=== PATIENT | female | born 1950 | race African-American/Black ===

== ENCOUNTER → 2018-06-07 | Outpatient (CLI) | payer MEDICARE, MEDICAID | END | disposition home or self-care (01) | LOC: CT 08:38 | PROVIDERS: ATTEND Internal Medicine Geriatric Medicine | DX: M47.812 Spondylosis without myelopathy or radiculopathy, cervical region (principal); N63.31 Unspecified lump in axillary tail of the right breast; N28.1 Cyst of kidney, acquired; I51.7 Cardiomegaly; R90.82 White matter disease, unspecified; G31.9 Degenerative disease of nervous system, unspecified | CPT/HCPCS: 70490; 71250 ==

== ENCOUNTER 2020-01-07 14:20 | Inpatient (IN) | payer MEDICARE, MEDICAID ==
[~2020-01-07] VITALS: Ht 167.6 cm; Wt 88.0 kg
[2020-01-07 15:14] LABS: CHLORIDE 105 mEq/L (98-107)
[2020-01-07 15:16] LABS: BASOPHILS % 0.8 % (0.0-2.0); EOSINOPHILS % 1.3 % (0.0-5.0); HEMATOCRIT. 36.3 % (36.0-48.0); HEMOGLOBIN. 11.9 g/dL (12.0-16.0); LYMPHOCYTES % 28.1 % (20.0-50.0); MEAN CORPUSCULAR HEMOGLOBIN 27.5 pg (28.0-32.0); MEAN CORPUSCULAR VOLUME 83.7 fL (81.0-99.0); MEAN PLATELET VOLUME 8.9 fl (7.4-10.4); MONOCYTES % 13.6 % (2.0-8.0); NEUTROPHILS % 56.2 % (40.0-76.0); PLATELET 198 x1000/uL (130-400); RED BLOOD CELL COUNT 4.34 mill/uL (4.2-5.4); RED CELL DISTRIBUTION WIDTH 16.2 % (11.6-14.6)
[2020-01-07] MEDS ORDERED: FUROSEMIDE 20MG/2ML VIAL IVP ONE (16:30)
[2020-01-07 19:08] LABS: CLARITY URINE CLEAR (CLEAR); COLOR URINE YELLOW (YELLOW); KETONES URINE NEGATIVE (NEGATIVE); LEUKOCYTE ESTERASE URINE NEGATIVE (NEGATIVE); NITRITE URINE NEGATIVE (NEGATIVE); OCCULT BLOOD URINE NEGATIVE (NEGATIVE); PH URINE 6.5 (4.5-8.0); PROTEIN URINE NEGATIVE (NEGATIVE); SPECIFIC GRAVITY URINE 1.012 (1.005-1.030); UROBILINOGEN URINE 0.2 E.U./dL (0.2-1.0)
[2020-01-08] MEDS ORDERED: GUAIFENESIN 200MG/10ML SUGAR FREE UDC PO PRN (09:30)
[2020-01-08 09:45] VITALS: BP 172/92
[2020-01-08] MEDS ORDERED: HYDROCODONE/ACETAMINOPHEN 5/325MG TABLET PO NR (09:45)
[2020-01-08] MEDS ORDERED: DOCUSATE SODIUM 250MG CAPSULE PO NR (10:00)
[2020-01-08] MEDS ORDERED: AMLODIPINE 5MG TABLET PO NR (10:30)
[2020-01-08] MEDS ORDERED: POTASSIUM CHLORIDE 20MEQ TABLET SR PO NR (10:30)
[2020-01-08] MEDS ORDERED: ASPIRIN 81MG EC TABLET PO NR (10:30)
[2020-01-08] MEDS ORDERED: CALCIUM CARBONATE 1250MG TABLET (500MG ELEMENTAL CALCIUM) PO NR (10:30)
[2020-01-08] MEDS ORDERED: ERGOCALCIFEROL 50000UNITS CAPSULE PO NR (11:00)
[2020-01-08] MEDS: ENOXAPARIN 40MG/0.4ML SYR SUBCUT SCH (12:05)
[2020-01-08 12:30] VITALS: BP 160/88
[2020-01-08 16:00] VITALS: BP 131/69
[2020-01-08 16:05] VITALS: BP 131/69
[2020-01-08] MEDS: GABAPENTIN 100MG CAPSULE PO SCH (18:29)
[2020-01-08] MEDS: MONTELUKAST SODIUM 10MG TABLET PO SCH (18:29)
[2020-01-08] MEDS: FLUTICASONE/VILANTEROL 200-25 BLST.W.DEV ORI SCH (18:29)
[2020-01-08 20:00] VITALS: BP 137/72
[2020-01-08] MEDS ORDERED: ZOLPIDEM TARTRATE 5MG TABLET PO PRN (21:00)
[2020-01-09] VITALS: BP 128/82
[2020-01-09 04:00] VITALS: BP 132/69
[2020-01-09] MEDS: GABAPENTIN 100MG CAPSULE PO SCH ×2 (06:32→17:08)
[2020-01-09 08:06] VITALS: BP 125/71
[2020-01-09] MEDS: ENALAPRIL 5MG TABLET PO SCH (08:33)
[2020-01-09] MEDS: HYDROCODONE/ACETAMINOPHEN 5/325MG TABLET PO PRN ×3 (08:34→21:00)
[2020-01-09] MEDS: DOCUSATE SODIUM 250MG CAPSULE PO SCH (08:34)
[2020-01-09] MEDS: AMLODIPINE 5MG TABLET PO SCH (08:35)
[2020-01-09] MEDS: FLUTICASONE/VILANTEROL 200-25 BLST.W.DEV ORI SCH (08:35)
[2020-01-09] MEDS: ENOXAPARIN 40MG/0.4ML SYR SUBCUT SCH (08:35)
[2020-01-09] MEDS: CALCIUM CARBONATE 1250MG TABLET (500MG ELEMENTAL CALCIUM) PO SCH (08:35)
[2020-01-09] MEDS: FUROSEMIDE 40MG/4ML VIAL IVP SCH (08:36)
[2020-01-09 08:38] LABS: BASOPHILS % 0.9 % (0.0-2.0); EOSINOPHILS % 2.4 % (0.0-5.0); HEMATOCRIT. 35.6 % (36.0-48.0); HEMOGLOBIN. 11.8 g/dL (12.0-16.0); MEAN CORPUSCULAR HEMOGLOBIN 27.5 pg (28.0-32.0); MEAN CORPUSCULAR VOLUME 82.7 fL (81.0-99.0); MEAN PLATELET VOLUME 9.5 fl (7.4-10.4); MONOCYTES % 12.4 % (2.0-8.0); NEUTROPHILS % 59.3 % (40.0-76.0); PLATELET 195 x1000/uL (130-400); RED BLOOD CELL COUNT 4.31 mill/uL (4.2-5.4); RED CELL DISTRIBUTION WIDTH 15.2 % (11.6-14.6)
[2020-01-09 08:50] LABS: CHLORIDE 104 mEq/L (98-107)
[2020-01-09] MEDS ORDERED: POTASSIUM CHLORIDE 20MEQ TABLET SR PO SCH (09:00)
[2020-01-09] MEDS ORDERED: METOLAZONE 2.5MG TABLET PO SCH (09:00)
[2020-01-09] MEDS: METOLAZONE 5MG TABLET PO SCH (10:22)
[2020-01-09 12:01] VITALS: BP 114/73
[2020-01-09 16:12] VITALS: BP 139/72
[2020-01-09] MEDS ORDERED: POTASSIUM CHLORIDE 20MEQ TABLET SR PO NR (17:00)
[2020-01-09] MEDS: MONTELUKAST SODIUM 10MG TABLET PO SCH (17:05)
[2020-01-09 17:11] LABS: A/G RATIO 0.6 (0.7-1.7); ALBUMIN 3.1 g/dL (2.9-4.4); ALPHA-1-GLOBULIN 0.3 g/dL (0.0-0.4); ALPHA-2-GLOBULIN 0.8 g/dL (0.4-1.0); BETA GLOBULIN 1.2 g/dL (0.7-1.3); GAMMA GLOBULINS 2.6 g/dL (0.4-1.8); GLOBULIN TOTAL 4.9 g/dL (2.2-3.9); M-SPIKE Not Observed g/dL (Not Observed)
[2020-01-09 22:02] VITALS: BP 110/46
[2020-01-10 03:33] VITALS: BP 120/56
[2020-01-10 04:30] VITALS: BP 128/83
[2020-01-10] MEDS: ACETAMINOPHEN 325MG TABLET PO PRN ×2 (05:32→11:33)
[2020-01-10] MEDS: GABAPENTIN 100MG CAPSULE PO SCH (05:32)
[2020-01-10 07:04] LABS: CHLORIDE 101 mEq/L (98-107)
[2020-01-10 07:06] LABS: BASOPHILS % 0.6 % (0.0-2.0); EOSINOPHILS % 0.7 % (0.0-5.0); HEMATOCRIT. 36.3 % (36.0-48.0); HEMOGLOBIN. 12.1 g/dL (12.0-16.0); LYMPHOCYTES % 24.6 % (20.0-50.0); MEAN CORPUSCULAR HEMOGLOBIN 27.4 pg (28.0-32.0); MEAN CORPUSCULAR VOLUME 82.6 fL (81.0-99.0); MEAN PLATELET VOLUME 10.1 fl (7.4-10.4); MONOCYTES % 11.9 % (2.0-8.0); NEUTROPHILS % 62.2 % (40.0-76.0); PLATELET 213 x1000/uL (130-400); RED CELL DISTRIBUTION WIDTH 15.3 % (11.6-14.6)
[2020-01-10 08:00] VITALS: BP 151/82
[2020-01-10] MEDS: FLUTICASONE/VILANTEROL 200-25 BLST.W.DEV ORI SCH (08:46)
[2020-01-10] MEDS: METOLAZONE 5MG TABLET PO SCH (08:46)
[2020-01-10] MEDS: ENOXAPARIN 40MG/0.4ML SYR SUBCUT SCH (08:46)
[2020-01-10] MEDS: ENALAPRIL 5MG TABLET PO SCH (08:47)
[2020-01-10] MEDS: DOCUSATE SODIUM 250MG CAPSULE PO SCH (08:48)
[2020-01-10] MEDS: AMLODIPINE 5MG TABLET PO SCH (08:48)
[2020-01-10] MEDS: FUROSEMIDE 40MG/4ML VIAL IVP SCH (08:48)
[2020-01-10] MEDS: CALCIUM CARBONATE 1250MG TABLET (500MG ELEMENTAL CALCIUM) PO SCH (08:48)
[2020-01-10] MEDS ORDERED: POTASSIUM CHLORIDE 20MEQ TABLET SR PO SCH (09:00)
[2020-01-10 12:00] VITALS: BP 120/54
[2020-01-10 13:36] VITALS: BP 120/54
[2020-01-15] MEDS ORDERED: ERGOCALCIFEROL 50000UNITS CAPSULE PO SCH (09:00)
== END 2020-01-10 15:38 | DRG 292 ==
LOC: ER 14:20 → 6WST 15:41 → EDBEDREQ 15:49 → EDBEDREQTM 15:49 → ENRESERV 21:05 → CANRESERV 21:05 → ENRESERV 01-08 07:38 → CANRESERV 01-08 07:38 → ENRESERV 01-08 08:15
PROVIDERS: ADMIT Internal Medicine Geriatric Medicine; ATTEND Internal Medicine Geriatric Medicine
DX: I11.0 Hypertensive heart disease with heart failure (principal); F03.91 Unspecified dementia, unspecified severity, with behavioral disturbance; D63.8 Anemia in other chronic diseases classified elsewhere; F17.210 Nicotine dependence, cigarettes, uncomplicated; G89.4 Chronic pain syndrome; I50.9 Heart failure, unspecified; J44.9 Chronic obstructive pulmonary disease, unspecified; M79.605 Pain in left leg; M17.11 Unilateral primary osteoarthritis, right knee; Z85.3 Personal history of malignant neoplasm of breast; Z91.14 Patient's other noncompliance with medication regimen; Z03.818 Encounter for observation for suspected exposure to other biological agents ruled out; M79.604 Pain in right leg; R53.1 Weakness; F32.9 Major depressive disorder, single episode, unspecified
CPT/HCPCS: 36415; 71045; 72100; 72170; 73552; 80048; 80053; 81003; 83880; 84155; 84165; 84484; 85025; 93005; 93306; 93970; 97162; 99285; J1650; J1940; C9803-CS; U0003-CS